=== PATIENT | male | born 1950 | race Caucasian/White ===

== ENCOUNTER → 2018-06-15 13:50 | Outpatient (CLI) | payer OTHER | END | disposition home or self-care (01) | LOC: D.MRI 13:50 | DX: M54.6 Pain in thoracic spine (principal) ==

== ENCOUNTER 2020-05-21 13:01 | Inpatient (IN) | payer OTHER, MEDICARE ==
[~2020-05-21] VITALS: Ht 152.4 cm; Wt 72.7 kg
[2020-05-21 13:25] LABS: BASOPHILS 0.5 % (0-2); EOSINOPHILS 0.1 % (0-7); HEMATOCRIT 46.8 % (42.0-54.0); HEMOGLOBIN 15.9 g/dL (13.5-17.5); IMMATURE GRANULOCYTES 0.1 % (0-5); MCH 31.7 pg (26.0-34.0); MCV 93.2 fL (80.0-100.0); MEAN PLATELET VOLUME 9.4 fL (7.4-10.4); NEUTROPHILS 81.3 % (40-80); PLATELET COUNT 202 10x3/uL (130-400); RBC 5.02 10x6/uL (4.20-6.10); RDW 13.5 % (11.5-14.5); WBC 8.7 10x3/uL (4.8-10.8)
[2020-05-21 13:27] VITALS: BP 153/54
[2020-05-21 13:38] LABS: CALC OSMOLALITY 276 mosm/kg (275-300); CALCIUM 9.3 mg/dL (8.5-10.1); CARBON DIOXIDE 21.8 mmol/L (21.0-32.0); CHLORIDE - SERUM 104 mmol/L (98-107); CREATININE - SERUM 1.4 mg/dL (0.6-1.3); GLUCOSE 83 mg/dL (74-106); POTASSIUM - SERUM 4.4 mmol/L (3.5-5.1); SODIUM 138 mmol/L (136-145); UREA NITROGEN 17 mg/dL (7-18); eGFR NON AFRICAN AMERICAN 53 mL/min (90-120)
[2020-05-21 13:53] LABS: ALBUMIN 3.8 g/dL (3.4-5.0); ALKALINE PHOSPHATASE 90 U/L (30-120); ALT (SGPT) 37 U/L (10-68); BILIRUBIN - TOTAL 1.12 mg/dL (0.2-1.3); CKMB 4.4 U/L (0.0-3.6); CREATINE KINASE 120 UL (21-232); MAGNESIUM - SERUM 1.8 mg/dL (1.8-2.4); PROTEIN - SERUM 7.3 g/dL (6.4-8.2)
[2020-05-21 13:55] LABS: TROPONIN-I < 0.017 ng/mL (0.000-0.060)
[2020-05-21 14:06] LABS: INR 1.09 (0.85-1.17); PROTIME 14.1 SECONDS (11.6-15.0)
[2020-05-21 14:23] VITALS: BP 141/50
[2020-05-21 17:45] VITALS: BP 137/53
--- NOTE | 2020-05-21 17:50 | NUR ---
CALLED MED II TO GIVE REPORT, NURSE WILL CALL BACK.
--- NOTE | 2020-05-21 18:25 | NUR ---
REPORT CALLED TO MED 2: SADI ZAMORA.
[2020-05-21 20:05] LABS: CKMB 2.5 U/L (0.0-3.6); CREATINE KINASE 118 UL (21-232)
[2020-05-21 20:06] LABS: TROPONIN-I < 0.017 ng/mL (0.000-0.060)
[2020-05-22] VITALS: BP 134/65
[2020-05-22 01:44] LABS: CKMB 3.8 U/L (0.0-3.6); CREATINE KINASE 135 UL (21-232); TROPONIN-I < 0.017 ng/mL (0.000-0.060)
[2020-05-22 04:00] VITALS: BP 129/55
[2020-05-22 08:30] LABS: BASOPHILS 0.5 % (0-2); HEMOGLOBIN 14.5 g/dL (13.5-17.5); IMMATURE GRANULOCYTES 0.2 % (0-5); LYMPHOCYTES 24.9 % (15-50); MCH 32.2 pg (26.0-34.0); MCHC 34.5 g/dL (31.0-37.0); MCV 93.3 fL (80.0-100.0); MEAN PLATELET VOLUME 9.5 fL (7.4-10.4); MONOCYTES 8.6 % (2-11); NEUTROPHILS 64.8 % (40-80); PLATELET COUNT 189 10x3/uL (130-400); RDW 13.4 % (11.5-14.5)
[2020-05-22 08:33] LABS: WBC 6.3 10x3/uL (4.8-10.8)
[2020-05-22 09:07] LABS: CALC OSMOLALITY 278 mosm/kg (275-300); CALCIUM 8.2 mg/dL (8.5-10.1); CARBON DIOXIDE 24.8 mmol/L (21.0-32.0); CHLORIDE - SERUM 107 mmol/L (98-107); CKMB 3.4 U/L (0.0-3.6); CREATINE KINASE 138 UL (21-232); CREATININE - SERUM 1.4 mg/dL (0.6-1.3); GLUCOSE 84 mg/dL (74-106); MAGNESIUM - SERUM 1.6 mg/dL (1.8-2.4); PHOSPHOROUS 3.5 mg/dL (2.5-4.9); POTASSIUM - SERUM 4.5 mmol/L (3.5-5.1); SODIUM 140 mmol/L (136-145); TROPONIN-I 0.027 ng/mL (0.000-0.060); UREA NITROGEN 16 mg/dL (7-18); eGFR NON AFRICAN AMERICAN 53 mL/min (90-120)
[2020-05-22 10:36] VITALS: BP 134/58
[2020-05-22 12:00] VITALS: BP 141/79
[2020-05-22 16:00] VITALS: BP 163/57
[2020-05-22 20:00] VITALS: BP 116/59
[2020-05-23] VITALS: BP 177/71
--- NOTE | 2020-05-23 00:48 | NUR ---
CALLED IN TO PTS ROOM, PT ASKING ABOUT HAVE A PACEMAKER PLACED IN THE MORNING, INFORMED PT THAT THERE IS NOT A WRITTEN ORDER AT THIS TIME BUT PTS NAME HAS BEEN ADDED TO THE SPINE SPECIALIST SCHEDULE FOR PACEMAKER PLACEMENT, PT STATED THAT HE IS NOT GOING TO BE HAVING SURGERY IN THE MORNING BECAUSE HE WANTS TO GET A SECOND OPINION BEFORE HE HAS ANY TYPE OF SURGERY DONE.
[2020-05-23 03:21] VITALS: Ht 152.4 cm; Wt 72.7 kg
[2020-05-23 04:00] VITALS: BP 150/64
--- NOTE | 2020-05-23 04:30 | NUR ---
I have reviewed this patient and I concur with the Shift Assessment completed by the Licensed Practical Nurse today this shift.
[2020-05-23 06:34] LABS: BASOPHILS 0.4 % (0-2); EOSINOPHILS 1.3 % (0-7); HEMATOCRIT 41.7 % (42.0-54.0); HEMOGLOBIN 14.3 g/dL (13.5-17.5); IMMATURE GRANULOCYTES 0.1 % (0-5); LYMPHOCYTES 23.2 % (15-50); MCHC 34.3 g/dL (31.0-37.0); MCV 93.3 fL (80.0-100.0); MEAN PLATELET VOLUME 9.8 fL (7.4-10.4); MONOCYTES 9.4 % (2-11); NEUTROPHILS 65.6 % (40-80); PLATELET COUNT 191 10x3/uL (130-400); RBC 4.47 10x6/uL (4.20-6.10); RDW 13.4 % (11.5-14.5); WBC 6.7 10x3/uL (4.8-10.8)
[2020-05-23 06:50] LABS: ANION GAP 13.7 mmol/L (8-16); CALCIUM 8.6 mg/dL (8.5-10.1); CARBON DIOXIDE 24.2 mmol/L (21.0-32.0); CREATININE - SERUM 1.4 mg/dL (0.6-1.3); MAGNESIUM - SERUM 1.8 mg/dL (1.8-2.4); PHOSPHOROUS 3.3 mg/dL (2.5-4.9); POTASSIUM - SERUM 3.9 mmol/L (3.5-5.1)
--- NOTE | 2020-05-23 08:21 | CN ---
PATIENT NAME:BELLA DUNCAN MEDICAL RECORD: [id number] : 46 LOCATION:[facility] D.2120 ADMIT DATE: 05/21/20 ACCOUNT: [id number] CONSULTING PHYSICIAN: OLESYA CARVER MD REFERRING PHYSICIAN: ANITA ADLER MD DATE OF CONSULTATION: 05/22/2020 HISTORY OF PRESENT ILLNESS: A 69-year-old gentleman with no known cardiovascular history, has a history of ulcerative colitis, was actually scheduled for a colonoscopy, found to be in flutter with slow ventricular response. In retrospect, he does report occasional symptomology of near syncope, never syncope, only when he falls asleep at computer so easily, etc. No falls or other untoward events. We are asked to see him concerning his cardiovascular status. PAST MEDICAL HISTORY: Includes history of ulcerative colitis. MEDICATIONS: None chronically. ALLERGIES: None known. SOCIAL HISTORY: Retired. Nonsmoker, social drinker, does exercise on a regular basis. Easily takes care of all his ADLs. REVIEW OF SYSTEMS: The patient reports easy bruising but reports no swollen glands. The patient reports no fever, no night sweats, no significant weight gain, no significant weight loss. No significant exercise tolerance. The patient reports no dry eyes, no irritation, no vision change. Patient reports no difficulty hearing and no ear pain. Patient reports no frequent nose bleeds or nose and sinus problems. Patient reports on arm pain on exertion. No shortness of breath while lying down. No history of heart murmur. Patient reports no cough, no wheezing or coughing up blood. Patient reports no abdominal pain, no vomiting. Normal appetite. No diarrhea and not vomiting blood. No nausea and no constipation. Patient reports no incontinence. No difficulty urinating. No hematuria. No increased frequency. Patient reports no muscle aches. No weakness, no arthralgias, no back pain. No swelling of the extremities. Patient reports no abnormal mole, no jaundice, no rashes. Reports no loss of consciousness. No weakness and no numbness. No seizures, dizziness, or headaches. The patient reports no depression, no sleep disturbance, feeling safe in a relationship and no alcohol abuse. Patient reports on fatigue. Reports no runny nose or sinus pressure. No itching, no hives, and no frequent sneezing. PHYSICAL EXAMINATION: GENERAL: Pleasant. No acute distress. Appears actually younger than stated age. VITAL SIGNS: Blood pressure 129/55, pulse 38 and regular. HEENT: Normocephalic, atraumatic. NECK: No bruits are noted. HEART: Regular, II/ systolic ejection murmur. No gallops noted. LUNGS: Good air excursion. ABDOMEN: Soft, nontender. EXTREMITIES: Pulses 2+. There is no edema. IMPRESSION AND PLAN: Sick sinus syndrome with kelley response at this point, CONSULT REPORT [id number] BELLA DUNCAN will need a FORREST score. Will probably need to consider DOAC at some point although plan permanent pacemaker placement in the near future. Could consider overdrive atrial pacing at the same time. Further recommendations based on the above. TRANSINT:[id number] Voice Confirmation ID: [id number] DOCUMENT ID: [id number] OLESYA CARVER MD at 0821 CC: [id number] DICTATION DATE: 05/22/20 0937 SMALL ANIMAL VETERINARIAN: 05/22/20 1524 ADM IN [place] [id number] [place] [id number]
[2020-05-23 09:32] VITALS: BP 150/89
--- NOTE | 2020-05-23 09:57 | NUR ---
PT NOT WANTING TO HAVE PACEMAKER DONE. HAD BEEN NPO, TALKED WITH JUVE LONGO AND DIAMOND LONGO WITH CARDIO. PT STATES WANTS TO LEAVE AMA.
[2020-05-23 13:55] VITALS: BP 162/70
--- NOTE | 2020-05-23 14:08 | NUR ---
PT'S DISCHARGE INSTRUCTIONS REVIEWED AND SIGNED. TELEMETRY REMOVED, IV OUT. WALKED TO ER FOR [facility].
--- NOTE | 2020-05-24 08:47 | EC ---
PATIENT:BELLA DUNCAN DATE OF SERVICE: 05/21/20 SEX: M MEDICAL RECORD: [id number] DATE OF : 46 LOCATION:D.M2 D.212 AGE OF PATIENT: 69 ADMISSION DATE: 05/21/20 REFERRING PHYSICIAN: INTERPRETING PHYSICIAN: OLESYA CARVER MD ECHOCARDIOGRAM REPORT ECHO CHARGES 4 ECHO COMPLETE Date: 05/22/20 CLINICAL DIAGNOSIS: NEW ONSET ATRIAL FLUTTER, SOB, HTN ECHOCARDIOGRAPHIC MEASUREMENTS (adult normal given) AC root (d.<3.7cm) 3.0 cm LV Septum d (<1.2 cm> 1.1 cm Valve Excursion 1.3 cm LV Septum (systole) 1.7 cm Left Atria (s.<4.0cm> 4.4 cm LVPW d(<1.2cm) 0.9 cm RV (d.<2.3cm) 3.3 cm LVPW (sytole) 1.6 cm LV diastole(<5.6CM) 4.6 cm MV E-F(>70mm/sec) cm LV systole 2.2 cm LVOT Diameter 1.7 cm MV exc.(>10mm) cm Est.ejection fraction (50-75%) % DOPPLER: LVIT cm/sec A 34 cm/sec E 102 cm/sec LA cm/sec RVSP 21.1 mmHg LVOT 96 cm/sec AOP1/2T m/s Asc. Ao 135 cm/sec RVOT 60 cm/sec RA cm/sec PA 92 cm/sec AV Gradient Peak 7.3 mmHg AV Mean 4.4 mmHg AV Area 1.3 cm MV Gradient Peak 4.6 mmHg MV Mean 1.6 mmHg MV Area cm COMMENTS: [employer]: James [employer] In[employer] Department Worker: 3 Dr. Breaux TAPE# PACS Pericardial Effusion N DATE OF SERVICE: Adequate 2D, color flow imaging, spectral Doppler, and M-Mode. No LVH. LV internal dimensions are normal. Wall motion is normal. EF is greater than or equal to 55%. Aortic valve is sclerotic. No evidence of stenosis by Doppler interrogation. Left atrium is normal. Mitral valve shows no prolapse. Trace MR. Right-sided chambers are grossly normal. Mild TR. TRANSINT:[id number] Voice Confirmation ID: [id number] DOCUMENT ID: [id number] ECHOCARDIOGRAM REPORT [id number] BELLA DUNCAN,OLESYA Mendoza MD at 0847 CC: [id number] DICTATION DATE: 05/23/20815 PRECIPITATOR: 05/23/20 0827 DIS IN 05/23/20 [place] [id number] [place] [id number]
== END 2020-05-23 14:10 | disposition home or self-care (01) | DRG 309 ==
LOC: D.ER 13:01 → D.EDHOLD 16:15 → D.M2 16:15
PROVIDERS: Family Medicine; ADMIT Emergency Medicine; ATTEND Emergency Medicine
DX: I49.5 Sick sinus syndrome (principal); I48.92 Unspecified atrial flutter; N17.9 Acute kidney failure, unspecified; M19.90 Unspecified osteoarthritis, unspecified site; E83.42 Hypomagnesemia